=== PATIENT | female | born 1985 | race Caucasian/White ===

== ENCOUNTER 2018-03-06 22:38 | Emergency (ER) | payer SELFPAY ==
[2018-03-06 23:11] LABS: Pregnancy Test - Urine (BHCG) Negative (Negative)
[2018-03-06 23:12] LABS: Pregu Control Background? CLEAR/WHITE (CLR/WHITE); Pregu Control Bar Appear? YES (CONTROL BAR); Specific Gravity 1.034 (1.002-1.036)
[2018-03-06] MEDS ORDERED: Lidocaine 1% w/Epinephrine 1:100K 20 ML VIAL ONE (23:23)
== END 2018-03-06 23:52 | disposition home or self-care (01) ==
LOC: ERS 22:38
DX: S01.511A Laceration without foreign body of lip, initial encounter (principal); F17.210 Nicotine dependence, cigarettes, uncomplicated; Z71.6 Tobacco abuse counseling; Y21 Drowning and submersion, undetermined intent
CPT/HCPCS: 12011; 81025; 99406; J2001

== ENCOUNTER 2018-05-28 14:44 | Emergency (ER) | payer SELFPAY ==
[2018-05-28] MEDS ORDERED: Dexamethasone 4 mg/ml Vial ONE (15:43)
== END 2018-05-28 15:50 | disposition home or self-care (01) ==
LOC: ERS 14:44
DX: J06.9 Acute upper respiratory infection, unspecified (principal); F17.210 Nicotine dependence, cigarettes, uncomplicated
CPT/HCPCS: 87081; 87430; 96372; 99406; J1100

== ENCOUNTER 2018-08-09 22:58 | Emergency (ER) | payer SELFPAY | END 2018-08-10 00:11 | disposition home or self-care (01) | LOC: ERS 22:58 | DX: S01.511A Laceration without foreign body of lip, initial encounter (principal); F17.210 Nicotine dependence, cigarettes, uncomplicated; W10.9XXA Fall (on) (from) unspecified stairs and steps, initial encounter | CPT/HCPCS: 12051 ==

== ENCOUNTER 2018-08-12 23:39 | Emergency (ER) | payer SELFPAY | END 2018-08-13 00:27 | disposition home or self-care (01) | LOC: ERS 23:39 | DX: T81.33XA Disruption of traumatic injury wound repair, initial encounter (principal); F17.210 Nicotine dependence, cigarettes, uncomplicated; Z71.6 Tobacco abuse counseling | CPT/HCPCS: 99406 ==

== ENCOUNTER 2018-08-17 18:34 | Emergency (ER) | payer SELFPAY | END 2018-08-17 19:08 | disposition left against medical advice (07) | LOC: ERS 18:34 | DX: Z53.21 Procedure and treatment not carried out due to patient leaving prior to being seen by health care provider (principal) ==

== ENCOUNTER 2018-08-18 09:13 | Emergency (ER) | payer SELFPAY | END 2018-08-18 10:32 | disposition home or self-care (01) | LOC: ERS 09:13 | DX: S01.511D Laceration without foreign body of lip, subsequent encounter (principal); F17.210 Nicotine dependence, cigarettes, uncomplicated; Z71.6 Tobacco abuse counseling; X58.XXXA Exposure to other specified factors, initial encounter | CPT/HCPCS: 99406 ==

== ENCOUNTER 2018-11-29 07:00 | Emergency (ER) | payer SELFPAY | END 2018-11-29 07:24 | disposition left against medical advice (07) | LOC: ERS 07:00 | DX: Z53.21 Procedure and treatment not carried out due to patient leaving prior to being seen by health care provider (principal) ==

== ENCOUNTER 2018-12-25 23:29 | Emergency (ER) | payer BC, OTHER ==
[2018-12-26 00:30] LABS: #Eosinphils 0.3 thou/uL (0.0-0.7); #Lymphocytes 2.3 thou/uL (1.20-3.40); #Monocytes 0.6 thou/uL (0.11-0.59); %Basophils 0.4 % (0.0-1.0); %Lymphocytes 24.6 % (21.0-51.0); %Monocytes 6.7 % (0.0-10.0); %Neutrophils 65.2 % (42.0-75.0); Hemoglobin 12.5 g/dL (12.0-16.0); Mean Corpuscular HGB CONC 33.5 g/dL (32.0-36.0); Mean Corpuscular Hemoglobin 29.3 pg (27.0-31.0); Mean Corpuscular Volume 87.3 fL (78.0-98.0); Platelet Count 238 thou/uL (130-400); RBC Distribution Width 11.8 % (11.5-14.5); Red Blood Cell (RBC) Count 4.28 mill/uL (4.20-5.40); White Blood Cell (WBC) Count 9.1 thou/uL (4.8-10.8)
[2018-12-26 00:37] LABS: Bilirubin Negative (Negative); Blood, Urine Negative (Negative); Clarity CLEAR (Clear); Glucose, Urine (Dipstick) Negative (Negative); Leukocyte Negative (Negative); Nitrite Negative (Negative); Protein, Urine (Dipstick) Trace mg/dL (Neg-Trace); Urobilinogen 0.2 mg/dL (0.2-1.0)
[2018-12-26 00:46] LABS: BHCG - Serum POSITIVE (NEGATIVE); Pregs Control Background? CLEAR/WHITE (CLR/WHITE); Pregs Control Bar Appear? YES (CONTROL BAR)
[2018-12-26 00:58] LABS: ALT (SGPT) 16 U/L (8-55); AST (SGOT) 13 U/L (5-34); Albumin 3.8 g/dL (3.5-5.0); Alkaline Phosphatase 49 U/L (40-150); Anion Gap 11 mmol/L (10-20); BUN (Urea Nitrogen) 10 mg/dL (7.0-18.7); Bilirubin, Total Less than 0.2 mg/dL (0.2-1.2); Calc. Creatinine Clearance 0 mL/min (70-130); Calcium 8.8 mg/dL (7.8-10.44); Carbon Dioxide 22 mmol/L (22-29); Chloride 108 mmol/L (98-107); Estimated GFR-MDRD Greater than 90; Globulin 2.5 g/dL (2.4-3.5); Glucose 81 mg/dL (70-105); Lipase 15 U/L (8-78); Potassium 3.7 mmol/L (3.5-5.1); Protein, Total 6.3 g/dL (6.0-8.3); Sodium 137 mmol/L (136-145)
[2018-12-26 20:54] LABS: Chlamydia by PCR Not Detected (NotDetected); GC by PCR Not Detected (NotDetected)
== END 2018-12-25 23:33 | disposition home or self-care (01) ==
LOC: ERS 23:29
DX: O99.89 Other specified diseases and conditions complicating pregnancy, childbirth and the puerperium (principal); R10.9 Unspecified abdominal pain; Z3A.10 10 weeks gestation of pregnancy
CPT/HCPCS: 36415; 80053; 81003; 83690; 84702; 84703; 85025; 87491; 87591

== ENCOUNTER 2019-03-04 19:06 | Emergency (ER) | payer BC, OTHER ==
[2019-03-04 19:36] LABS: #Eosinphils 0.2 thou/uL (0.0-0.7); #Lymphocytes 1.8 thou/uL (1.20-3.40); #Monocytes 0.7 thou/uL (0.11-0.59); #Neutrophils 7.3 thou/uL (1.40-6.50); %Basophils 0.2 % (0.0-1.0); %Eosinophils 2.3 % (0.0-10.0); %Monocytes 7.1 % (0.0-10.0); %Neutrophils 72.4 % (42.0-75.0); Hemoglobin 12.3 g/dL (12.0-16.0); Mean Corpuscular HGB CONC 33.2 g/dL (32.0-36.0); Mean Corpuscular Hemoglobin 28.5 pg (27.0-31.0); Mean Corpuscular Volume 85.9 fL (78.0-98.0); Mean Platelet Volume 7.1 fL (7.4-10.4); Platelet Count 224 thou/uL (130-400); RBC Distribution Width 12.2 % (11.5-14.5); Red Blood Cell (RBC) Count 4.31 mill/uL (4.20-5.40); White Blood Cell (WBC) Count 10.1 thou/uL (4.8-10.8)
[2019-03-04 19:57] LABS: ALT (SGPT) 22 U/L (8-55); AST (SGOT) 13 U/L (5-34); Albumin 3.6 g/dL (3.5-5.0); Alkaline Phosphatase 65 U/L (40-150); Anion Gap 11 mmol/L (10-20); BUN (Urea Nitrogen) 10 mg/dL (7.0-18.7); Bilirubin, Total 0.2 mg/dL (0.2-1.2); Calc. Creatinine Clearance 0 mL/min (70-130); Calcium 9.2 mg/dL (7.8-10.44); Carbon Dioxide 21 mmol/L (22-29); Chloride 108 mmol/L (98-107); Estimated GFR-MDRD Greater than 90; Globulin 2.8 g/dL (2.4-3.5); Glucose 96 mg/dL (70-105); Potassium 3.7 mmol/L (3.5-5.1); Protein, Total 6.4 g/dL (6.0-8.3); Sodium 136 mmol/L (136-145)
--- NOTE | 2019-03-08 13:29 | EKG ---
Test Reason : Blood Pressure : / mmHG Vent. Rate : 080 BPM Atrial Rate : 080 BPM P-R Int : 118 ms QRS Dur : 074 ms QT Int : 366 ms P-R-T Axes : 046 068 066 degrees QTc Int : 422 ms Normal sinus rhythm Normal ECG Confirmed by HILARIO ORTIZ DO ([id number]), offline editor YON JEFFREY ([id number]) on 03/08/2019 1:29:24 PM Referred By: Confirmed By:HILARIO ORTIZ DO
== END 2019-03-04 21:36 | disposition home or self-care (01) ==
LOC: ERS 19:06
DX: O99.89 Other specified diseases and conditions complicating pregnancy, childbirth and the puerperium (principal); R00.2 Palpitations; Z3A.18 18 weeks gestation of pregnancy
CPT/HCPCS: 80053; 83880; 84484; 85025; 93005

== ENCOUNTER 2019-04-01 14:11 | Day surgery (SDC) | payer BC, OTHER ==
[2019-04-01 14:48] VITALS: BMI 30.5
[2019-04-01 14:58] LABS: Amnisure Internal Control QC ACCEPTABLE (ACCEPTABLE); Amnisure Test No Membranes Rupture (No Rupture)
[2019-04-01] MEDS ORDERED: hydrALAZINE 20 MG/ML VIAL SLOW IVP PRN (14:58)
--- NOTE | 2019-04-01 15:02 | PDOC.LDHP ---
Labor and Delivery H&P Chief complaint: other (Low Back pain after "road trip") HPI: Patient of Dr sethi in [facility] Location: triage [id number] Time: 1500 CC: low back pain after road trip HPI: 33 yo HX PTL with last CS at 27 weeks (CS x 2) here for above CC. No CTX. Unsure if LOF x 1...not persistent. No VB, good FM. Was on progesterone this IUP but stopped it due to palpitations. Review of Systems: Negative for fever, no CTX. no VB. No recent trauma. Full ROS completed Current gestational age (weeks): 23 (1 Day) Due date: 08/03/19 Dating criteria: last menstrual period Grav: 3 Para: 2 OB History Details: PTL x 2...2 CS Current complications: none Abnormal US findings: No Past Medical History: none Current medications: pre- vitamins Previous surgical history: other (CS X2) Allergies/Adverse Reactions: Allergies Allergy/AdvReac Type Severity Reaction Status Date / Time No Known Allergies Allergy Verified 04/01/19 14:51 - Physical Exam Vital signs reviewed and normal: yes (133/69 85 98.4) General: NAD Heart: RRR Lungs: CTAB Abdomen: gravid Extremeties: no edema [place] contractions every: FHTs by doppler - Assessment 23 weeks 1 day with possible musculoskeletal pain...no evidence UTI by SXS or PE. HX PTL and off progesterone. No sxs of labor. One episode possible LOF - Plan Plan: observation in L&D (I have ordered amnisure as a screen. I do not suspect ROM clinically or by HX. I have ordered cervical length sono for screening.)
--- NOTE | 2019-04-01 15:41 | PDOC.EVN ---
Event Note - Event Note Event Note: negative Clinically...no evidence ROM, perineum dry. No leak with maneuvers. Index of suspciocn for LOF very low. CX >4cm per verbal. Suspect musculoskeletal pain, NOS.
--- NOTE | 2019-04-01 17:30 | ULT ---
LIMITED OB ULTRASOUND: HISTORY: distress. FINDINGS: A single live intrauterine gestation is seen with a heart rate of 163 beats per minute. Cervical length measures 4.6 cm. HEATHER measures 22.5 cm. Placenta is posteriorly located without evid ence of placenta previa. Presentation is vertex. POS: [facility]
== END 2019-04-01 16:00 | disposition home health service (06) ==
LOC: L&D/OP 14:11
PROVIDERS: ATTEND Obstetrics & Gynecology
DX: O99.89 Other specified diseases and conditions complicating pregnancy, childbirth and the puerperium (principal); M54.5 Low back pain; Z3A.23 23 weeks gestation of pregnancy
CPT/HCPCS: 76815; 84112; 99282

== ENCOUNTER 2019-06-21 14:48 | Emergency (ER) | payer BC, OTHER | END 2019-06-21 15:11 | disposition home or self-care (01) | LOC: ERS 14:48 | DX: R05 Cough (principal) | CPT/HCPCS: 99281 ==

== ENCOUNTER 2019-11-23 14:52 | Emergency (ER) | payer BC, OTHER, SELFPAY ==
[2019-11-23] MEDS ORDERED: Meclizine HCl 25 MG TAB ONE (15:58)
[2019-11-23 16:19] LABS: #Basophils 0.1 thou/uL (0.0-0.2); #Eosinphils 0.3 thou/uL (0.0-0.7); #Lymphocytes 1.8 thou/uL (1.20-3.40); #Monocytes 0.4 thou/uL (0.11-0.59); #Neutrophils 3.8 thou/uL (1.40-6.50); %Eosinophils 4.4 % (0.0-10.0); %Lymphocytes 27.8 % (21.0-51.0); %Monocytes 6.1 % (0.0-10.0); %Neutrophils 60.7 % (42.0-75.0); Hemoglobin 13.6 g/dL (12.0-16.0); Mean Corpuscular HGB CONC 33.6 g/dL (32.0-36.0); Mean Corpuscular Hemoglobin 28.8 pg (27.0-31.0); Mean Corpuscular Volume 85.7 fL (78.0-98.0); Mean Platelet Volume 7.5 fL (7.4-10.4); Platelet Count 244 thou/uL (130-400); RBC Distribution Width 13.7 % (11.5-14.5); Red Blood Cell (RBC) Count 4.74 mill/uL (4.20-5.40); White Blood Cell (WBC) Count 6.3 thou/uL (4.8-10.8)
[2019-11-23 16:36] LABS: ALT (SGPT) 45 U/L (8-55); AST (SGOT) 24 U/L (5-34); Albumin 4.1 g/dL (3.5-5.0); Alkaline Phosphatase 63 U/L (40-110); Anion Gap 13 mmol/L (10-20); BUN (Urea Nitrogen) 11 mg/dL (7.0-18.7); Bilirubin, Total 0.2 mg/dL (0.2-1.2); Calc. Creatinine Clearance 0 mL/min (70-130); Calcium 8.9 mg/dL (7.8-10.44); Carbon Dioxide 25 mmol/L (22-29); Chloride 106 mmol/L (98-107); Estimated GFR-MDRD 87; Globulin 2.5 g/dL (2.4-3.5); Glucose 84 mg/dL (70-105); Potassium 3.8 mmol/L (3.5-5.1); Protein, Total 6.6 g/dL (6.0-8.3); Sodium 140 mmol/L (136-145)
[2019-11-23] MEDS ORDERED: diphenhydrAMINE 50 MG/ML VIAL ONE (17:06)
--- NOTE | 2019-11-27 14:38 | EKG ---
Test Reason : Blood Pressure : / mmHG Vent. Rate : 067 BPM Atrial Rate : 067 BPM P-R Int : 132 ms QRS Dur : 078 ms QT Int : 400 ms P-R-T Axes : 059 069 061 degrees QTc Int : 422 ms Normal sinus rhythm with sinus arrhythmia Normal ECG Reconfirmed by SNEHA PANTOJA ([id number]), newspaper or periodical editor MODESTA PLASCENCIA ([id number] on 11/27/2019 2:37:27 PM Referred By: Confirmed By:SNEHA Lundberg
== END 2019-11-23 18:05 | disposition home or self-care (01) ==
LOC: ERS 14:52
DX: H81.399 Other peripheral vertigo, unspecified ear (principal); F17.210 Nicotine dependence, cigarettes, uncomplicated
CPT/HCPCS: 80053; 85025; 93005; 96361; 96374; J1200; J8597

== ENCOUNTER 2020-03-29 07:40 | Emergency (ER) | payer SELFPAY ==
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
[2020-03-29] MEDS ORDERED: Acetaminophen 500 MG TAB ONE (08:37)
[2020-03-29] MEDS ORDERED: Ketorolac Tromethamine 30 MG/ML VIAL ONE (08:37)
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
== END 2020-03-29 09:00 | disposition home or self-care (01) ==
LOC: ERS 07:40
DX: S13.9XXA Sprain of joints and ligaments of unspecified parts of neck, initial encounter (principal); F17.210 Nicotine dependence, cigarettes, uncomplicated; V49.9XXA Car occupant (driver) (passenger) injured in unspecified traffic accident, initial encounter
CPT/HCPCS: 70450; 72125; 96372; J1885

== ENCOUNTER 2020-04-28 18:47 | Emergency (ER) | payer SELFPAY ==
[2020-04-28 19:20] LABS: Bilirubin Negative (Negative); Blood, Urine 2+ (Negative); Clarity Clear (Clear); Glucose, Urine (Dipstick) Normal (Negative); Ketone, Urine Negative (Negative); Leukocyte 500 Leu/uL (Negative); Nitrite Negative (Negative); Protein, Urine (Dipstick) 30 mg/dL (Neg-Trace); Specific Gravity, Urine 1.022 (1.002-1.036); Urobilinogen Normal mg/dL (Less than 2); WBC/HPF Greater than 50 HPF (0-3); pH, Urine 6.5 (5.0-9.0)
[2020-04-28 19:22] LABS: Bacteria/HPF 1+ HPF (None Seen)
[2020-04-28 20:47] LABS: Pregnancy Test - Urine (BHCG) Negative (Negative)
[2020-04-28 20:48] LABS: Pregu Control Background? CLEAR/WHITE (CLR/WHITE); Pregu Control Bar Appear? YES (CONTROL BAR); Specific Gravity 1.022 (1.002-1.036)
== END 2020-04-28 21:10 | disposition home or self-care (01) ==
LOC: ERS 18:47
DX: N39.0 Urinary tract infection, site not specified (principal); F17.210 Nicotine dependence, cigarettes, uncomplicated
CPT/HCPCS: 81003; 81015; 81025; 99284

== ENCOUNTER 2020-08-05 18:02 | Emergency (ER) | payer SELFPAY ==
[2020-08-06 03:00] LABS: SARS-CoV-2 MS2 Positive; SARS-CoV-2 N Gene Positive; SARS-CoV-2 S Gene Positive; SARS-CoV-2 by NAA DETECTED (NotDetected); SARS-CoV-2 orf1ab Positive
== END 2020-08-05 18:30 | disposition home or self-care (01) ==
LOC: ERS 18:02
DX: U07.1 COVID-19 (principal); F17.210 Nicotine dependence, cigarettes, uncomplicated
CPT/HCPCS: 87635; 99283; U0003

== ENCOUNTER 2020-08-12 06:35 | Emergency (ER) | payer SELFPAY ==
[2020-08-12] MEDS ORDERED: Dexamethasone 10 MG/ML VIAL ONE (07:33)
[2020-08-12] MEDS ORDERED: Albuterol 200 PUFF (6.7GM INHALER) ONE (07:33)
[2020-08-12 07:56] LABS: Hemoglobin 14.7 g/dL (12.0-16.0); Mean Corpuscular HGB CONC 34.2 g/dL (32.0-36.0); Mean Corpuscular Hemoglobin 29.8 pg (27.0-31.0); Mean Corpuscular Volume 87.3 fL (78.0-98.0); Mean Platelet Volume 7.8 fL (7.4-10.4); Platelet Count 248 thou/uL (130-400); RBC Distribution Width 11.9 % (11.5-14.5); Red Blood Cell (RBC) Count 4.92 mill/uL (4.20-5.40); White Blood Cell (WBC) Count 6.4 thou/uL (4.8-10.8)
--- NOTE | 2020-08-12 08:06 | RAD ---
EXAM: Portable chest PROVIDED CLINICAL HISTORY: Cough and shortness of breath, Covid positive COMPARISON: None FINDINGS: Cardiac and mediastinal silhouette is within normal limits. No focal consolidation, pleural fluid or pneumothorax evident. IMPRESSION: No evidence for an acute cardiopulmonary process.
[2020-08-12 08:16] LABS: ALT (SGPT) 42 U/L (8-55); AST (SGOT) 20 U/L (5-34); Alkaline Phosphatase 75 U/L (40-110); Anion Gap 14 mmol/L (10-20); BUN (Urea Nitrogen) 18 mg/dL (7.0-18.7); Bilirubin, Total 0.4 mg/dL (0.2-1.2); Calc. Creatinine Clearance 0 mL/min (70-130); Calcium 8.6 mg/dL (7.8-10.44); Carbon Dioxide 22 mmol/L (22-29); Chloride 109 mmol/L (98-107); Globulin 2.8 g/dL (2.4-3.5); Glucose 96 mg/dL (70-105); Potassium 3.8 mmol/L (3.5-5.1); Protein, Total 6.8 g/dL (6.0-8.3); Sodium 141 mmol/L (136-145)
[2020-08-12 08:35] LABS: Band 1 % (5-11); Eosinophils 5 % (0-10); Lymphocytes 37 % (21-51); MDiff Complete? YES; Monocytes 3 % (0-10); Neutrophil 49 % (42-75); RBC Morphology Normal; Reactive Lymphocytes 5 % (0-10)
--- NOTE | 2020-08-14 16:32 | EKG ---
Test Reason : Blood Pressure : / mmHG Vent. Rate : 068 BPM Atrial Rate : 068 BPM P-R Int : 122 ms QRS Dur : 078 ms QT Int : 390 ms P-R-T Axes : 056 073 069 degrees QTc Int : 414 ms Normal sinus rhythm with sinus arrhythmia Normal ECG Confirmed by SAMINA GALICIA M.D. ([id number]), purchasing expeditor YON JEFFREY ([id number]) on 08/14/2020 4:31:47 PM Referred By: Confirmed By:SAMINA GALICIA M.D.
== END 2020-08-12 09:26 | disposition home or self-care (01) ==
LOC: ERS 06:35
DX: U07.1 COVID-19 (principal); J45.909 Unspecified asthma, uncomplicated; F17.210 Nicotine dependence, cigarettes, uncomplicated
CPT/HCPCS: 36415; 71045; 80053; 84484; 85025; 85379; 93005; 96372; J1100

== ENCOUNTER 2020-11-21 10:28 | Emergency (ER) | payer OTHER ==
[2020-11-21] MEDS ORDERED: Albuterol 200 PUFF (6.7GM INHALER) ONE (11:04)
[2020-11-21 11:50] LABS: #Basophils 0.1 thou/uL (0.0-0.2); #Eosinphils 0.1 thou/uL (0.0-0.7); #Lymphocytes 1.7 thou/uL (1.20-3.40); #Monocytes 0.6 thou/uL (0.11-0.59); #Neutrophils 3.6 thou/uL (1.40-6.50); %Basophils 0.9 % (0.0-1.0); %Eosinophils 1.4 % (0.0-10.0); %Monocytes 9.7 % (0.0-10.0); Hemoglobin 14.3 g/dL (12.0-16.0); Mean Corpuscular HGB CONC 34.4 g/dL (32.0-36.0); Mean Corpuscular Hemoglobin 30.8 pg (27.0-31.0); Mean Corpuscular Volume 89.6 fL (78.0-98.0); Mean Platelet Volume 7.3 fL (7.4-10.4); Platelet Count 205 thou/uL (130-400); RBC Distribution Width 12.7 % (11.5-14.5); Red Blood Cell (RBC) Count 4.63 mill/uL (4.20-5.40); White Blood Cell (WBC) Count 6.1 thou/uL (4.8-10.8)
[2020-11-21 12:07] LABS: ALT (SGPT) 61 U/L (8-55); AST (SGOT) 31 U/L (5-34); Albumin 4.1 g/dL (3.5-5.0); Alkaline Phosphatase 70 U/L (40-110); Anion Gap 11 mmol/L (10-20); BUN (Urea Nitrogen) 18 mg/dL (7.0-18.7); Bilirubin, Total 0.3 mg/dL (0.2-1.2); Calc. Creatinine Clearance 0 mL/min (70-130); Calcium 9.1 mg/dL (7.8-10.44); Carbon Dioxide 22 mmol/L (22-29); Chloride 110 mmol/L (98-107); Globulin 2.7 g/dL (2.4-3.5); Glucose 99 mg/dL (70-105); Potassium 4.1 mmol/L (3.5-5.1); Protein, Total 6.8 g/dL (6.0-8.3); Sodium 139 mmol/L (136-145)
== END 2020-11-21 13:18 | disposition home or self-care (01) ==
LOC: ERS 10:28
DX: R06.02 Shortness of breath (principal); R05 Cough; F17.210 Nicotine dependence, cigarettes, uncomplicated; Z86.16 Personal history of COVID-19
CPT/HCPCS: 36415; 71045; 80053; 83880; 84484; 85025; 85379; 93005

== ENCOUNTER 2021-04-13 12:29 | Emergency (ER) | payer MEDICAID, OTHER, SELFPAY ==
[2021-04-13] MEDS ORDERED: Ketorolac Tromethamine 30 MG/ML VIAL ONE (13:11)
[2021-04-13 22:55] LABS: SARS-CoV-2 PCR by NAA Not Detected (NotDetected)
== END 2021-04-13 14:35 | disposition home or self-care (01) ==
LOC: ERS 12:29
DX: H66.41 Suppurative otitis media, unspecified, right ear (principal); J02.9 Acute pharyngitis, unspecified; Z20.822 Contact with and (suspected) exposure to COVID-19; J45.909 Unspecified asthma, uncomplicated; F17.210 Nicotine dependence, cigarettes, uncomplicated
CPT/HCPCS: 87081; 87430; 96372; 99283; J1885; U0003; U0005

== ENCOUNTER 2021-05-28 15:13 | Emergency (ER) | payer MEDICAID | END 2021-05-28 17:05 | disposition home or self-care (01) | LOC: ERS 15:13 | DX: J02.9 Acute pharyngitis, unspecified (principal); J45.909 Unspecified asthma, uncomplicated | CPT/HCPCS: 99283 ==

== ENCOUNTER 2022-05-10 14:37 | Emergency (ER) | payer MEDICAID, SELFPAY ==
[2022-05-10] MEDS ORDERED: Albuterol Sulfate 2.5 mg/3 ml Neb ONE (15:04)
== END 2022-05-10 18:45 | disposition home or self-care (01) ==
LOC: ERS 14:37
DX: T54.91XA Toxic effect of unspecified corrosive substance, accidental (unintentional), initial encounter (principal); T27 Burn and corrosion of respiratory tract; F17.210 Nicotine dependence, cigarettes, uncomplicated
CPT/HCPCS: 71045; 94640; J7611

== ENCOUNTER 2023-04-24 14:51 | Emergency (ER) | payer SELFPAY ==
[2023-04-24] MEDS ORDERED: Ipratropium/Albuterol 3 ML NEB ONE (15:14)
[2023-04-24] MEDS ORDERED: predniSONE 20 MG TAB ONE (15:39)
== END 2023-04-24 16:05 | disposition home or self-care (01) ==
LOC: ERS 14:51
DX: J45.21 Mild intermittent asthma with (acute) exacerbation (principal); F17.210 Nicotine dependence, cigarettes, uncomplicated
CPT/HCPCS: J7512; J7620

== ENCOUNTER 2024-10-09 12:00 | Emergency (ER) | payer SELFPAY ==
[2024-10-09] MEDS ORDERED: Acetaminophen 500 MG TAB ONE (12:20)
[2024-10-09] MEDS ORDERED: predniSONE 20 MG TAB ONE (12:20)
[2024-10-09] MEDS ORDERED: Albuterol 2.5 MG (3 mL) NEB ONE (12:28)
[2024-10-09] MEDS ORDERED: Ipratropium Bromide 2.5 ml Neb ONE (12:29)
== END 2024-10-09 13:40 | disposition home or self-care (01) ==
LOC: ERS 12:00
DX: B34.9 Viral infection, unspecified (principal); F17.210 Nicotine dependence, cigarettes, uncomplicated
CPT/HCPCS: 87428; J7512; J7611; J7644